=== PATIENT | female | born 1985 | race Caucasian/White ===

== ENCOUNTER 2021-03-28 10:00 | Emergency (ER) | payer OTHER ==
[~2021-03-28] VITALS: Ht 160 cm; Wt 50.8 kg
[2021-03-28] MEDS ORDERED: IBUPROFEN 600 MG TABLET PO ONE (10:30)
[2021-03-28] MEDS ORDERED: ACETAMINOPHEN ES 500 MG TABLET PO ONE (10:30)
[2021-03-28] MEDS ORDERED: ACETAMINOPHEN ES 500 MG TABLET ONE (10:33)
[2021-03-28] MEDS ORDERED: IBUPROFEN 600 MG TABLET ONE (10:33)
--- NOTE | 2021-03-28 10:47 | NUR ---
PT C/O MID STERNAL " PRESSUR " CHEST PAIN, NON RADIATING SINCE THURS AFTER ENDOSCOPY. DENIES SOB, DIZZINESS, N/V, ARM/JAW PAIN AT THIS TIME. PT SEEN & EVAL'D BY DR. JENNINGS. MEDICATED PER ERMD ORDER, PT MALORIE WELL. PLACED ON MANAGER MORTGAGE, SR. WILL CONT TO MONITOR.
[2021-03-28 10:54] LABS: BASOPHILS % (AUTO) 0.3 % (0.0-2.0); EOSINOPHILS % (AUTO) 2.9 % (0.0-6.0); HEMATOCRIT 41 % (33-45); HEMOGLOBIN 13.5 g/dL (11.5-14.8); LYMPHOCYTES # (AUTO) 0.9 K/uL (0.8-4.8); LYMPHOCYTES % (AUTO) 11.4 % (20.0-44.0); MEAN CORPUSCULAR HGB CONC 33 g/dl (31.0-36.0); MEAN CORPUSCULAR VOLUME 92 fL (82-100); MONOCYTES # (AUTO) 0.6 K/uL (0.1-1.30); NEUTROPHILS # (AUTO) 6.4 K/uL (1.8-8.9); NEUTROPHILS % (AUTO) 78.4 % (43.0-81.0); PLATELET COUNT (AUTO) 271 K/uL (150-450); WHITE BLOOD COUNT (AUTO) 8.2 K/uL (4.3-11.0)
[2021-03-28 11:01] LABS: CALCIUM, SERUM 9.3 mg/dL (8.5-10.1); CARBON DIOXIDE 30 mmol/L (21-32); CHLORIDE 104 mmol/L (98-107); CREATININE 0.7 mg/dL (0.6-1.3); GLUCOSE 96 mg/dL (74-106); POTASSIUM 3.8 mmol/L (3.5-5.1); SODIUM SERUM 141 mmol/L (136-145); UREA NITROGEN, BLOOD 8 mg/dL (7-18)
--- NOTE | 2021-03-28 11:04 | NUR ---
covid swabs done and sent to the lab
[2021-03-28 11:18] LABS: ALANINE AMINOTRANSFERASE 19 U/L (12-78); ALKALINE PHOSPHATASE 35 U/L (46-116); ASPARTATE AMINOTRANSFERASE 11 U/L (15-37); BILIRUBIN,DIRECT 0.1 mg/dL (0.0-0.2); BILIRUBIN,TOTAL 0.3 mg/dL (0.2-1.0); TOTAL PROTEIN, SERUM 7.4 g/dL (6.4-8.2)
[2021-03-28] MEDS ORDERED: IV NS 0.9% 250 ML IV ONE (12:37)
[2021-03-28] MEDS ORDERED: CT SWABBABLE VALVE TRANS SET 1 EA INFUS.SET MC ONE (12:37)
[2021-03-28] MEDS ORDERED: IOHEXOL-300 100 ML VIAL IV ONE (12:37)
--- NOTE | 2021-03-28 13:39 | NUR ---
PT BACK FROM CT. DENIES SOB, DIZZINESS, N/V AT THIS TIME. ON TELE, NSR. WILL CONT TO MONITOR.
[2021-03-28 14:51] VITALS: BP 110/65
--- NOTE | 2021-03-28 14:51 | NUR ---
Patient discharged to home in stable condition. Written and verbal after care instructions given. Patient verbalizes understanding of instruction. IV removed. Catheter intact and site benign. Pressure and 4x4 applied to site. No bleeding noted.
== END 2021-03-28 14:52 | disposition home or self-care (01) ==
LOC: ER 10:04
DX: J69.0 Pneumonitis due to inhalation of food and vomit (principal); Z20.822 Contact with and (suspected) exposure to COVID-19; J98.11 Atelectasis
CPT/HCPCS: 36415; 71045; 71260; 80048; 80076; 84484; 84702; 85025; 85378; 87426; 93005; 99285; C9803 ×2; J7050; Q9967; U0003